=== PATIENT | female | born 1980 | race Caucasian/White ===

== ENCOUNTER 2020-01-07 13:46 | Emergency (ER) | payer BC ==
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
[2020-01-07] MEDS ORDERED: Sodium Chloride 0.9% 10 ML Syringe FLUSH PRN (15:05)
[2020-01-07] MEDS ORDERED: LORazepam 2 MG/ML SDV IVPUSH ONE (15:09)
[2020-01-07] MEDS ORDERED: diphenhydrAMINE 50 MG/ML SDV IVPUSH ONE (15:09)
[2020-01-07] MEDS ORDERED: Prochlorperazine 10 MG in Sodium Chloride 0.9% 50 ML IV ONE (15:09)
[2020-01-07] MEDS ORDERED: Sodium Chloride 0.9% 500 ML IV ONE (15:10)
[2020-01-07] MEDS ORDERED: Iopamidol 755 Mg/ML 100 ML Bottle IV ONE (15:32)
[2020-01-07] MEDS ORDERED: Dexamethasone 4 MG/ML SDV IVPUSH ONE (16:47)
[2020-01-07] MEDS ORDERED: Azithromycin 500 MG Tab PO ONE (16:53)
== END 2020-01-07 17:40 | disposition home or self-care (01) ==
LOC: FB.ED 13:46
DX: J32.9 Chronic sinusitis, unspecified (principal); F17.210 Nicotine dependence, cigarettes, uncomplicated; Z88.0 Allergy status to penicillin
CPT/HCPCS: 36415; 70450; 70496; 80053; 82962; 83735; 85025; 85651; 96365; 96375; 99284; A9270; J0780; J1100; J1200; J2060; J7040; J7050; Q9967

== ENCOUNTER 2025-01-24 03:18 | Emergency (ER) | payer SELFPAY ==
[2025-01-24] MEDS: Ketorolac 30 MG/ML SDV IM ONE (04:16)
== END 2025-01-24 04:30 | disposition home or self-care (01) ==
LOC: FB.ED 03:18
DX: J02.9 Acute pharyngitis, unspecified (principal); Z87.891 Personal history of nicotine dependence; Z79.899 Other long term (current) drug therapy; Z88.0 Allergy status to penicillin
CPT/HCPCS: 87428-QW; 87651; 96372; 99283; A9270-GY; J1885